=== PATIENT | female | born 1940 | race Caucasian/White ===

== ENCOUNTER → 2016-03-14 | Outpatient (CLI) | payer BC ==
--- NOTE | 2016-03-14 13:37 | DIAGNOSTIC IMAGING REPORT ---
CT SCAN OF THE CHEST WITHOUT IV CONTRAST CLINICAL HISTORY: Pulmonary nodule follow-up. COMPARISON STUDY: Chest CT dated 08/17/[address] dated 06/28/2015. TECHNIQUE: CT scan of the thorax was performed from the thoracic inlet to the upper abdomen. Images are reviewed in the axial, sagittal, and coronal planes. IV contrast was not administered for this examination as per the referring clinician. CT DOSE: 245.27 mGy.cm FINDINGS: Thyroid: Imaged portions of the thyroid gland are normal in size and attenuation. There is a 3.1 cm calcification containing nodule in the right thyroid lobe. Thoracic aorta: There is mild atherosclerotic calcification of the thoracic aorta, which is normal in caliber and demonstrates standard 3-vessel arch anatomy. Heart: The heart is normal in size and without pericardial effusion. Lungs and pleural spaces: There is biapical scarring. No airspace consolidation or pleural effusion is seen. The trachea and central airways are clear. There is a 4 mm pleural-based nodule in the lingula seen on image #227. A 3 mm right lower lobe nodule seen image #228. These are unchanged from 08/17/2015. No new pulmonary nodule is identified. Mediastinum: There is no mediastinal lymphadenopathy. Desirae: Not well assessed without IV contrast. Axillae: There is no axillary lymphadenopathy. Upper abdomen: There are numerous calcified gallstones identified. Partially visualized upper abdominal viscera is otherwise within normal limits. Skeletal structures: The skeletal structures are osteopenic. No lytic or blastic bony lesions are seen. IMPRESSION: 1. A 4 mm pleural-based indeterminant but low suspicion nodule in the lingula is unchanged from 06/28/2015. Continued follow-up is recommended to document 2 years of stability. See below. 2. No new pulmonary nodules identified. 3. There is no airspace consolidation or pleural effusion. 4. Cholelithiasis. 5. There is a 3.1 cm nodule in the right lobe of the thyroid gland containing small calcifications. Follow-up with a dedicated thyroid ultrasound is recommended for further assessment. Please refer to below summary of Fleischner criteria recommendations for follow-up of incidental CT nodules (Jeremy Roman, Guidelines for management of small pulmonary nodules detected on CT scans: A statement from the Fleischner Society, Radiology 237: [phone].) Low Risk Patient: Minimal or no smoking or other known risk factors for malignancy <=4 mm: No follow-up needed. >4-6 mm: Initial follow-up CT at 12 months; if unchanged, no further follow-up. >6-8 mm: Initial follow-up CT at 6-12 months then at 18-24 months if no change. >8 mm: Follow-up CT at \R\3, 9, 24 months, or PET and/or biopsy. High Risk Patient: History of smoking or other known risk factors <=4 mm: Follow-up at 12 months; if unchanged, no further follow-up. >4-6 mm: Initial follow-up CT at 6-12 months then at 18-24 months if no change. >6-8 mm: Initial follow-up CT at 3-6 months then at 9-12 and 24 months if no change. >8 mm: Same as low risk patient. Note: Nodule size measured as average of length and width. Ground glass or partly solid nodules may require longer follow-up to exclude indolent adenocarcinoma. Electronically signed by: Jordy Lam M.D. 03/14/2016 1:35 PM Dictated Date/Time: 03/14/2016 1:30 PM
== END | disposition home or self-care (01) ==
LOC: C.CTS 13:07
PROVIDERS: ATTEND Family Medicine
DX: R91.1 Solitary pulmonary nodule (principal); E04.1 Nontoxic single thyroid nodule; K80.20 Calculus of gallbladder without cholecystitis without obstruction

== ENCOUNTER → 2016-03-19 | Outpatient (CLI) | payer BC ==
--- NOTE | 2016-03-19 11:14 | DIAGNOSTIC IMAGING REPORT ---
THYROID ULTRASOUND CLINICAL HISTORY: Thyroid nodule. COMPARISON STUDY: Chest CT March 14, 2016. TECHNIQUE: Sonography of the thyroid gland was performed. FINDINGS: The right lobe measures 6.1 x 3 x 3.2 cm. A hypoechoic nodule within the right lobe measures 3.1 x 1.9 x 2.2 cm. This corresponds to the nodule shown on prior CT and is predominantly solid. There is also a partially calcified 0.7 cm nodule within the right lobe. A few subcentimeter left lobe nodules are noted. These measure up to 0.8 cm. IMPRESSION: Several thyroid nodules including a dominant 3.1 cm right lobe thyroid nodule. This corresponds to the nodule shown on prior CT. Ultrasound-guided fine needle aspiration of the 3.1 cm right lobe nodule is recommended. Electronically signed by: Mart Mckeon M.D. 03/19/2016 11:12 AM Dictated Date/Time: 03/19/2016 11:08 AM
== END | disposition home or self-care (01) ==
LOC: C.ULTR 10:08
PROVIDERS: ATTEND Family Medicine
DX: E04.1 Nontoxic single thyroid nodule (principal)

== ENCOUNTER → 2016-03-27 | Outpatient (CLI) | payer BC ==
[2016-03-27 10:19] LABS: ESTIMATED AVERAGE GLUCOSE 134 mg/dl; HA1C FLAG Normal (Normal)
[2016-03-27 10:25] LABS: ALT/SGPT 21 U/L (12-78); AST/SGOT 25 U/L (15-37); BLOOD UREA NITROGEN 14 mg/dl (7-18); BUN/CREATININE RATIO 16.2 (10-20); CALCIUM 9.3 mg/dl (8.5-10.1); CARBON DIOXIDE 27 mmol/L (21-32); CHLORIDE 104 mmol/L (98-107); CREATININE 0.89 mg/dl (0.60-1.20); GLUCOSE 110 mg/dl (70-99); HDL CHOLESTEROL 61 mg/dl; SODIUM 141 mmol/L (136-145)
[2016-03-27 10:36] LABS: ALB/GLOB RATIO 1.1 (0.9-2); ALKALINE PHOSPHATASE 89 U/L (45-117); CHOLESTEROL 150 mg/dl (0-200); CHOLESTEROL/HDL RATIO 2.5; LDL CHOLESTEROL CALCULATED 44 mg/dl; TRIGLYCERIDES 224 mg/dl (0-150); VERY LOW DENSITY LIPOPROT CALC 45 mg/dl
== END | disposition home or self-care (01) ==
LOC: C.LAB1850 08:52
PROVIDERS: ATTEND Family Medicine
DX: M81.0 Age-related osteoporosis without current pathological fracture (principal); E78.5 Hyperlipidemia, unspecified; E03.9 Hypothyroidism, unspecified; R73.03 Prediabetes; E04.1 Nontoxic single thyroid nodule

== ENCOUNTER → 2016-03-27 | Outpatient (CLI) | payer BC ==
--- NOTE | 2016-03-27 10:25 | Discharge Instructions ---
Discharge Instructions Procedure Procedure Date: Mar 27, 2016. Reason for visit: Thyroid Nodule. Discharge Discharge Date: Mar 27, 2016. Discharge Diagnosis: Multinodular goiter Instructions Activity Recommendations: No limitations Return to School/Work: no limitations Recommended Home Diet: Resume Previous Diet Allergies Coded Allergies: Ciprofloxacin (Verified Allergy, Unknown, UNKNOWN, 08/02/14) Sulfa Drugs (Verified Allergy, Unknown, UNKNOWN, 08/02/14) Uncoded Allergies: [id number] (Allergy, Unknown, UNKNOWN, 08/02/14) Ciprofloxacin [id number] (Allergy, Unknown, UNKNOWN, 08/02/14) Sulfa Drugs [place] Recommendations: Call your doctor if: * Temperature above 101 degrees * Pain not relieved by pain medicine ordered * There is increased drainage or redness from any incision * You have any unanswered questions or concerns. Your Doctors Instructions noted above were prepared by provider Huey Vines. Patient Signature Section: Patient Instructions Signature Page Kelle Fischer Patient (or Guardian) Signature/Date: I have read and understand the instructions given to me by my caregivers. Caregiver/RN/Doctor Signature/Date: The above-named patient and/or guardian has received patient instructions on this date. + Original Patient Signature Page (only) stays with chart. Please make copy for patient.
--- NOTE | 2016-03-27 10:50 | DIAGNOSTIC IMAGING REPORT ---
ULTRASOUND-GUIDED THYROID FINE-NEEDLE ASPIRATION BIOPSY (RIGHT LOBE) CLINICAL HISTORY: Multinodular thyroid goiter. Dominant right lobe nodule. COMPARISON STUDY: 03/19/2016 FINDINGS: The risks of the procedure were explained the patient and informed consent was obtained. The patient was prepped in sterile fashion. The skin was anesthetized 1% lidocaine. Utilizing a 25-gauge needle, 2 passes under ultrasound guidance were performed. Initial pathologic review indicates satisfactory material for diagnosis. There were no immediate complications. IMPRESSION: Successful ultrasound-guided fine-needle aspiration biopsy of a dominant 3 cm right lobe thyroid nodule. Electronically signed by: Huey Vines M.D. 03/27/2016 10:49 AM Dictated Date/Time: 03/27/2016 10:47 AM
== END | disposition home or self-care (01) ==
LOC: C.ULTR 09:31
PROVIDERS: ATTEND Family Medicine
DX: E04.1 Nontoxic single thyroid nodule (principal)

== ENCOUNTER → 2016-09-25 | Outpatient (CLI) | payer BC ==
[2016-09-25 09:54] LABS: ALT/SGPT 23 U/L (12-78); BLOOD UREA NITROGEN 14 mg/dl (7-18); BUN/CREATININE RATIO 16.1 (10-20); CALCIUM 9.7 mg/dl (8.5-10.1); CARBON DIOXIDE 27 mmol/L (21-32); CHLORIDE 106 mmol/L (98-107); CHOLESTEROL 156 mg/dl (0-200); CREATININE 0.89 mg/dl (0.60-1.20); GLUCOSE 110 mg/dl (70-99); POTASSIUM 4.1 mmol/L (3.5-5.1); SODIUM 140 mmol/L (136-145); TRIGLYCERIDES 179 mg/dl (0-150); VERY LOW DENSITY LIPOPROT CALC 36 mg/dl
[2016-09-25 10:05] LABS: ALB/GLOB RATIO 1.1 (0.9-2); ALKALINE PHOSPHATASE 75 U/L (45-117); AST/SGOT 35 U/L (15-37); CHOLESTEROL/HDL RATIO 2.5; HDL CHOLESTEROL 63 mg/dl; LDL CHOLESTEROL CALCULATED 57 mg/dl; THYROID STIMULATING HORMONE 0.543 uIu/ml (0.300-4.500)
[2016-09-25 10:07] LABS: ESTIMATED AVERAGE GLUCOSE 131 mg/dl; HA1C FLAG Normal (Normal)
[2016-09-25 10:49] LABS: HEMATOCRIT 43.8 % (37-47); MEAN CELL VOLUME 93.8 fL (80-100); MEAN CORPUSCULAR HEMOGLOBIN 31.9 pg (25-34); MEAN PLATELET VOLUME 10.8 fL (7.4-10.4); PLATELET COUNT 221 K/uL (130-400); RED BLOOD COUNT 4.67 M/uL (4.2-5.4); WHITE BLOOD COUNT 7.25 K/uL (4.8-10.8)
== END | disposition home or self-care (01) ==
LOC: C.LAB1850 08:11
PROVIDERS: ATTEND Family Medicine
DX: I10 Essential (primary) hypertension (principal); E78.5 Hyperlipidemia, unspecified; E04.1 Nontoxic single thyroid nodule; E03.9 Hypothyroidism, unspecified; R73.03 Prediabetes

== ENCOUNTER → 2016-11-11 | Outpatient (CLI) | payer BC | END | disposition home or self-care (01) | LOC: C.MAMM 08:11 | PROVIDERS: ATTEND Family Medicine | DX: M85.88 Other specified disorders of bone density and structure, other site (principal); M85.852 Other specified disorders of bone density and structure, left thigh; M85.851 Other specified disorders of bone density and structure, right thigh ==

== ENCOUNTER → 2017-03-27 | Outpatient (CLI) | payer BC ==
[2017-03-27 10:00] LABS: BASO % 0.5 %; BASO ABS # 0.04 K/uL (0-0.2); EOS % 4.1 %; EOS ABS # 0.34 K/uL (0-0.5); HEMATOCRIT 44.6 % (37-47); HEMOGLOBIN 15.1 g/dL (12.0-16.0); IG# 0.02 K/uL (0.00-0.02); LYMPH % 28.9 %; LYMPH ABS # 2.41 K/uL (1.2-3.4); MEAN CELL VOLUME 94.1 fL (80-100); MEAN CORPUSCULAR HEMOGLOBIN 31.9 pg (25-34); MEAN CORPUSCULAR HGB CONC 33.9 g/dl (32-36); MEAN PLATELET VOLUME 10.6 fL (7.4-10.4); MONO % 7.4 %; MONO ABS # 0.62 K/uL (0.11-0.59); NEUT % 58.9 %; NEUT ABS # 4.91 K/uL (1.4-6.5); PLATELET COUNT 236 K/uL (130-400); RED CELL DISTRIBUTION WIDTH CV 12.7 % (11.5-14.5); RED CELL DISTRIBUTION WIDTH SD 43.5 fL (36.4-46.3); WHITE BLOOD COUNT 8.34 K/uL (4.8-10.8)
[2017-03-27 10:27] LABS: ALT/SGPT 23 U/L (12-78); BLOOD UREA NITROGEN 13 mg/dl (7-18); CALCIUM 9.5 mg/dl (8.5-10.1); CARBON DIOXIDE 27 mmol/L (21-32); CHOLESTEROL 150 mg/dl (0-200); CREATININE 0.89 mg/dl (0.60-1.20); GLUCOSE 108 mg/dl (70-99); POTASSIUM 3.9 mmol/L (3.5-5.1); SODIUM 139 mmol/L (136-145)
[2017-03-27 10:37] LABS: LDL CHOLESTEROL CALCULATED 48 mg/dl
[2017-03-27 11:15] LABS: HEMOGLOBIN A1C 6.2 % (4.5-5.6)
== END | disposition home or self-care (01) ==
LOC: C.LAB1850 09:11
PROVIDERS: ATTEND Family Medicine
DX: I10 Essential (primary) hypertension (principal); E78.5 Hyperlipidemia, unspecified; E03.9 Hypothyroidism, unspecified

== ENCOUNTER → 2017-04-07 | Outpatient (CLI) | payer BC ==
[~2017-04-07] MED LIST: GADAVIST IV PRN
--- NOTE | 2017-04-07 09:12 | DIAGNOSTIC IMAGING REPORT ---
BRAIN COMBO CLINICAL HISTORY: VISUAL FIELD CHANGES COMPARISON STUDY: No previous studies for comparison. TECHNIQUE: Utilizing a 1.5 Ilana magnet and dedicated coil, multiplanar, multiecho imaging of the brain was performed pre and postcontrast administration. IV administration of 6.5 mL of Gadavist contrast was uneventful. FINDINGS: Diffusion images demonstrate 2 punctate foci of acute ischemic change right. Parietal lobe. No additional foci are present. The findings of age-related cerebellar as well as cerebral atrophy. Moderate chronic small vessel changes noted throughout both cerebral hemispheres. Ventricular system is midline. Sella and parasellar regions are unremarkable. There is no significant postcontrast enhancement. IMPRESSION: 1. 2 punctate foci of acute ischemic change right superior parietal lobe. 2. Age-related atrophy and chronic small vessel change. The above report was generated using voice recognition software. It may contain grammatical, syntax or spelling errors. Electronically signed by: Pedro Herr M.D. 04/07/2017 9:10 AM Dictated Date/Time: 04/07/2017 9:00 AM
== END | disposition home or self-care (01) ==
LOC: C.MRIBC 08:06
PROVIDERS: ATTEND Ophthalmology
DX: H53.40 Unspecified visual field defects (principal); I67.82 Cerebral ischemia

== ENCOUNTER → 2017-09-30 | Outpatient (CLI) | payer BC ==
[2017-09-30 09:55] LABS: HEMOGLOBIN A1C 6.4 % (4.5-5.6)
[2017-09-30 10:09] LABS: ALT/SGPT 25 U/L (12-78); BLOOD UREA NITROGEN 12 mg/dl (7-18); CALCIUM 8.9 mg/dl (8.5-10.1); CARBON DIOXIDE 27 mmol/L (21-32); CHOLESTEROL 146 mg/dl (0-200); CREATININE 0.88 mg/dl (0.60-1.20); GLUCOSE 113 mg/dl (70-99); LDL CHOLESTEROL CALCULATED 46 mg/dl; SODIUM 138 mmol/L (136-145)
== END | disposition home or self-care (01) ==
LOC: C.LAB1850 07:47
PROVIDERS: ATTEND Family Medicine
DX: E78.5 Hyperlipidemia, unspecified (principal); E03.9 Hypothyroidism, unspecified; R73.03 Prediabetes